=== PATIENT | female | born 1950 | race Caucasian/White ===

== ENCOUNTER 2021-10-08 21:02 | Inpatient (IN) | payer MEDICARE, OTHER ==
[~2021-10-08] VITALS: Ht 152.4 cm; Wt 61.2 kg
[2021-10-08 22:06] LABS: RED BLOOD COUNT 5.4 M/UL (4.00-5.10); WHITE BLOOD COUNT 21.3 K/UL (4.5-11.0)
[2021-10-08 22:29] LABS: BUN/CREATININE RATIO 32 (0-10)
[2021-10-09] MEDS ORDERED: ZOFRAN 4 MG TAB4 MG PO (14:06)
[2021-10-09] MEDS ORDERED: LEVOFLOXACIN750 MG PO (14:06)
[2021-10-09] MEDS ORDERED: CYMBALTA60 MG PO (14:34)
== END 2021-10-09 15:17 | disposition home or self-care (01) | DRG 375 ==
LOC: ER1 21:02 → CDU 10-09 03:55
PROVIDERS: Physician Assistant Medical; ADMIT Internal Medicine
DX: C78.6 Secondary malignant neoplasm of retroperitoneum and peritoneum (principal); N39.0 Urinary tract infection, site not specified; E87.1 Hypo-osmolality and hyponatremia; K56.609 Unspecified intestinal obstruction, unspecified as to partial versus complete obstruction; R18.0 Malignant ascites; Z20.822 Contact with and (suspected) exposure to COVID-19; E87.6 Hypokalemia; F17.210 Nicotine dependence, cigarettes, uncomplicated; M79.7 Fibromyalgia; K59.00 Constipation, unspecified; Z98.51 Tubal ligation status; Z90.49 Acquired absence of other specified parts of digestive tract; Z98.890 Other specified postprocedural states; Z88.0 Allergy status to penicillin; Z82.49 Family history of ischemic heart disease and other diseases of the circulatory system; Z80.1 Family history of malignant neoplasm of trachea, bronchus and lung; Z80.0 Family history of malignant neoplasm of digestive organs; Z72.89 Other problems related to lifestyle
CPT/HCPCS: 71045; 80053; 81001; 83605; 85025; 87086; C9113; J1956; Q9967; U0002